=== PATIENT | female | born 1965 | race Caucasian/White ===

== ENCOUNTER → 2023-07-19 06:30 | Day surgery (SDC) | payer OTHER, SELFPAY | LOC: GI 06:30 | PROVIDERS: ATTENDING PHYSICIAN Internal Medicine Gastroenterology; FAMILY PHYSICIAN Family Medicine | DX: Z12.11 Encounter for screening for malignant neoplasm of colon (principal); K64.8 Other hemorrhoids; Q43.8 Other specified congenital malformations of intestine; Z86.010 Personal history of colon polyps | CPT/HCPCS: G0105 ==

== ENCOUNTER 2024-01-29 07:02 | Emergency (ER) | payer OTHER, SELFPAY ==
[2024-01-29] VITALS (8 sets, daily range): BP systolic 97–127; BP diastolic 56–89; PULSE 83–115; BMI 23.9
--- NOTE | 2024-01-29 07:27 | ED.GENMED ---
History of Present Illness
General
Chief Complaint: Dizziness
Source: patient and spouse
Time Seen by Provider: 01/29/24 07:10
History of Present Illness
History of Present Illness:
58-year-old female with no significant past medical history presenting to the emergency department for evaluation of 1 episode of nausea and vomiting that began last night accompanied by sensation of lightheadedness, palpitations and shortness of
breath. Was able to go back to sleep but upon awakening still felt the lightheadedness sensation and palpitations prompting her to come to the ER for further evaluation. Patient notes they went out to dinner last night and [place] but that she
has not had any fevers or diarrhea or other GI related symptoms. At present time does not feel the nausea or vomiting. Patient actually states that she feels somewhat improved since arriving to the ER. No known sick contacts but patient does note
that her son was exposed to somebody with COVID during the middle of the week and patient was also traveling in [place] for a conference and came back home on . Patient also notes she was recently started on Ozempic about 6 weeks ago but
states she has not had any complications with this. Social history was otherwise noncontributory.
Past History
Past History
ED Past Medical History: None
ED Past Surgical History: None
Social History
Tobacco: Non-smoker
Alcohol: Occasional
Drug: None
Personal:
Living: with family
Employment: Employed
Review of Systems
Review of Systems
All Other Systems: ROS reviewed and negative except as documented in HPI and ROS
Phy Exam
Physical Exam
Physical Exam:
GENERAL: Alert , in no apparent distress, somewhat anxious
EYE: clear conjunctiva
NECK: Supple
ENT: mmm.
CARDIAC: Regular rate and rhythm, HR between 88-93 during exam, no murmurs .
LUNGS: Clear breath sounds bilaterally, no acute respiratory distress, no wheezes/rales/rhonchi
ABDOMEN: Soft, without focal tenderness, no r/g, no cvat
NEUROLOGICAL: Alert and oriented, no focal neuro deficits, CASTILLO x 4, ambulates with steady gait, no ataxia, no dysmetria
SKIN: Warm and dry, skin intact.
MUSCULOSKELETAL: No edema, well perfused.
PSYCH: Normal and appropriate interaction.
Scores
Heart Failure Risk
Heart Failure Risk Score: Not Applicable
Heart Score for Chest Pain Patients
STEMI patient?: Not applicable
Withdrawal Assessment of Alcohol
Withdrawal Assessment Completed?: Not applicable
Course
Orders/Labs/Results
Orders:
Orders
01/29/24 07:05
ECG [Electrocardiogram (*1)] Urgent
Reason for Study: Chest Pain
EKG- Treatment ONCE
01/29/24 07:27
Orthostatic VS- Treatment ONCE
0.9% Sodium Chloride 1000 ml [Nss] 1,000 ml IV BOLUS
01/29/24 07:35
COVID-19 Antigen Urgent
Source: Nasal Swab
Complete Blood Count/With Diff Urgent
Comprehensive Metabolic Panel Urgent
TSH Urgent
Troponin I Urgent
Abnormal Lab Results
01/29/24
07:35
MCH 32.0 H pg
(27.0-31.0)
RDW 10.7 L %
(11.5-14.5)
Monocytes % 10.8 H %
(1.7-9.3)
Carbon Dioxide 21 L mmol/L
(22-30)
BUN 22 H mg/dl
(7-17)
Glucose 104 H mg/dl
(70-99)
01/29/24 07:35
01/29/24 07:35
Vital Signs
Initial and Last Documented VS:
Initial Vital Signs
Pulse Resp BP Pulse Ox
120 20 127/83 100
01/29/24 07:03 01/29/24 07:03 01/29/24 07:03 01/29/24 07:03
Last Documented Vital Signs
Pulse Resp BP Pulse Ox
83 15 113/74 96
01/29/24 09:15 01/29/24 09:15 01/29/24 09:00 01/29/24 09:15
MDM/Problems Addressed
Differential Diagnosis Includes:
viral syndrome, orthostasis, dehydration, electrolyte derangement, less concern for GI related illness given improvement of symptoms and no diarrhea
MDM/Problems Addressed:
58-year-old female presenting to the emergency department for evaluation of 1 episode of nausea and vomiting, lightheadedness, palpitations and generally feeling unwell. Symptoms are somewhat to mostly improved on arrival to the ER. Patient
denying any nausea or vomiting currently. Palpitations seem to be resolved. She is slightly anxious in appearance but otherwise well-appearing and in no acute distress. Will check labs, orthostatics, troponin, COVID test given possible exposure.
1 L of IV fluids given. Reassessment following.
*Pulse Oximetry
Patient hypoxic: no
*EKG
Interpreted by ED Provider?: Yes
Comparison EKG: no comparison EKG present
Heart Rate: 97
Rate: normal
Rhythm: sinus
[place]: normal axis
Ischemia: no ischemia
*[employer]ter Interpretation
Rate: normal
Rhythm: sinus
*Critical Care Note
Total Time (30-74mins, 75-104mins- exclusive of procedures): Not Applicable
Patient Management
Escalation/DeEscalation of care consider admission/obs:
On multiple re-evaluations patient noting she feels much improved. Labs finding with no significant abnormalities but she did have very slight elevation of BUN so there may be a mild component of dehydration. Feels well to go home. Aware of return
precautions. Discussed BRAT diet. Stable for d/c home
ED Attending Note
-
Portions of this chart may have been created with voice recognition software.� Occasional wrong word or��sound alike� substitutions may have occurred due to the inherent limitations of voice recognition software.
Discharge Plan
Departure
Patient Disposition: Home (Routine Discharge)
Date of Disposition: 01/29/24
Time of Disposition: 09:08
Patient with high blood pressure during this ER visit?: No
Discharge Problem:
Lightheadedness
Instructions: Dizziness, Nonvertigo, (DC)
Referrals:
Delilah Rodriguez DO [Family Provider] -
Interventions
Interventions:
*Risk Screen - Suicide Last Done: 01/29/24 07:23
*General Assessment Last Done: 01/29/24 07:45
*Neglect/Abuse Screening Last Done: 01/29/24 07:23
ED- Fall Risk Assessment Last Done: 01/29/24 07:23
*ED COVID-19 Vaccine History Last Done: 01/29/24 07:45
*Nursing Disposition Last Done: 01/29/24 09:23
ED- Neurological Assessment Last Done: 01/29/24 07:46
ED- Cardiac Assessment Last Done: 01/29/24 07:46
ED Swallowing Screen Last Done: 01/29/24 07:48
Discharge Date and Time
Discharge Date/Time: 01/29/24 09:30
Print Language: ALGERIAN
[2024-01-29 07:49] LABS: % Basophils 1.1 % (0-2); % Eosinophils 2.2 % (0-6); % Immature Granulocytes 0.2 % (0-0.5); % Lymphocytes 24.8 % (20.5-51.1); % Monocytes 10.8 % (1.7-9.3); % Neutrophils 60.9 % (42.2-75.2); Absolute Basophils 0.1 10^3/uL (0-0.2); Absolute Eosinophils 0.1 10^3/uL (0-0.7); Absolute Lymphocytes 1.4 10^3/uL (1.2-3.4); Absolute Monocytes 0.6 10^3/uL (0.1-0.6); Absolute Neutrophils 3.4 10^3/uL (1.4-6.5); Hematocrit 39.3 % (37.0-47.0); Mean Corp Hgb Conc. 35.6 g/dL (33.0-37.0); Mean Corpuscular Volume 89.7 fL (81.0-99.0); Mean Platelet Volume 9.8 fL (7.4-10.4); Nucleated Red Blood Cells % 0 %; Platelet Count 296 10^3/uL (130-400); Red Blood Cell Count 4.38 10^6/uL (4.20-5.40); Red Cell Dist. Width 10.7 % (11.5-14.5); White Blood Cell Count 5.6 10^3/uL (4.8-10.8)
[2024-01-29] MEDS: NSS 1000 IV (08:04)
[2024-01-29 08:13] LABS: ALT (SGPT) 16 U/L (0-35); AST (SGOT) 19 U/L (14-36); Albumin 4.6 g/dl (3.5-5.0); Alkaline Phosphatase 42 U/L (38-126); Blood Urea Nitrogen 22 mg/dl (7-17); Calcium 10.2 mg/dl (8.4-10.2); Carbon Dioxide 21 mmol/L (22-30); Chloride 106 mmol/L (98-107); Estimated Creatinine Clearance 57 ml/min; Glucose 104 mg/dl (70-99); Potassium 4.7 mmol/L (3.5-5.1); Sodium 142 mmol/L (135-145); Total Bilirubin 0.7 mg/dl (0.2-1.3); Total Protein 6.7 g/dl (6.3-8.2); eGFR > 60.00
[2024-01-29 08:16] LABS: Troponin I < 0.012 ng/ml
[2024-01-29 08:22] LABS: COVID-19 Antigen Negative (Negative)
[2024-01-29 08:36] LABS: TSH 2.51 uIU/ml (0.47-4.68)
== END 2024-01-29 09:30 | disposition home or self-care (01) ==
LOC: EMR 07:02
PROVIDERS: Physician Assistant Medical; EMERGENCY PHYSICIAN Student in an Organized Health Care Education/Training Program; FAMILY PHYSICIAN Family Medicine
DX: R42 Dizziness and giddiness (principal); Z11.52 Encounter for screening for COVID-19
CPT/HCPCS: 99284; 96360; 80053; 84443; 84484; 85025; 87811; 93005

== ENCOUNTER → 2024-03-22 12:36 | Outpatient (REF) | payer OTHER, SELFPAY | LOC: WDC 12:36 | PROVIDERS: ATTENDING PHYSICIAN Family Medicine | DX: Z12.31 Encounter for screening mammogram for malignant neoplasm of breast (principal) | CPT/HCPCS: 77063; 77067 ==

== ENCOUNTER 2024-05-01 10:14 | Emergency (ER) | payer OTHER, SELFPAY ==
[2024-05-01 10:23] VITALS: BP 143/90
[2024-05-01 10:47] LABS: % Basophils 0.9 % (0-2); % Eosinophils 0.9 % (0-6); % Immature Granulocytes 0.4 % (0-0.5); % Lymphocytes 18.9 % (20.5-51.1); % Monocytes 10.1 % (1.7-9.3); % Neutrophils 68.8 % (42.2-75.2); Absolute Basophils 0.1 10^3/uL (0-0.2); Absolute Eosinophils 0.1 10^3/uL (0-0.7); Absolute Monocytes 0.5 10^3/uL (0.1-0.6); Absolute Neutrophils 3.7 10^3/uL (1.4-6.5); Hematocrit 35.6 % (37.0-47.0); Mean Corp Hgb Conc. 33.7 g/dL (33.0-37.0); Mean Corpuscular Hgb 31.9 pg (27.0-31.0); Mean Corpuscular Volume 94.7 fL (81.0-99.0); Mean Platelet Volume 9.8 fL (7.4-10.4); Nucleated Red Blood Cells % 0 %; Platelet Count 333 10^3/uL (130-400); Red Blood Cell Count 3.76 10^6/uL (4.20-5.40); Red Cell Dist. Width 11.7 % (11.5-14.5); White Blood Cell Count 5.4 10^3/uL (4.8-10.8)
[2024-05-01 11:12] LABS: ALT (SGPT) 13 U/L (0-35); AST (SGOT) 14 U/L (14-36); Albumin 4.5 g/dl (3.5-5.0); Alkaline Phosphatase 26 U/L (38-126); Blood Urea Nitrogen 14 mg/dl (7-17); Calcium 9.4 mg/dl (8.4-10.2); Carbon Dioxide 26 mmol/L (22-30); Chloride 104 mmol/L (98-107); Glucose 114 mg/dl (70-99); Lipase 149 U/L (23-300); Potassium 3.8 mmol/L (3.5-5.1); Sodium 138 mmol/L (135-145); Total Bilirubin 0.2 mg/dl (0.2-1.3); Total Protein 6.7 g/dl (6.3-8.2); eGFR > 60.00
[2024-05-01 11:20] VITALS: BMI 23.6
[2024-05-01 11:46] VITALS: BP 129/81; BP 131/92; BP 136/71; PULSE 71; PULSE 72; PULSE 85
--- NOTE | 2024-05-01 11:53 | ED.GENMED ---
History of Present Illness
<Lucero Villasenor PA-C - Last Filed: 05/01/24 14:16>
General
Chief Complaint: Fainting Sensation
Source: patient
Exam Limitations: none
Time Seen by Provider: 05/01/24 11:16
Nursing documentation reviewed up to this point in time: agreed with
History of Present Illness
History of Present Illness:
Patient is a 58 year old female presenting for evaluation of lightheadedness and nausea over the past 5 days. Patient states she traveled to her home in [place]. She states throughout the weekend she was having persistent nausea
and lightheadedness. She did note occasional palpitations. No true dizziness sensation. No fevers or abdominal pain. She denies any chest pain or shortness of breath.
Patient did go to an IV fluids outpatient location yesterday and received a bag of fluids and some 'vitamin injections'.
Of note�patient did recently increase her semaglutide strength prior to onset of symptoms. In addition�she did start taking dutasteride for hair thinning the night before the onset of symptoms. Patient has since discontinued the dutasteride as she
is afraid it may be causing the symptoms.
Past History
<Lucero Villasenor PA-C - Last Filed: 05/01/24 14:16>
Past History
ED Past Medical History: None
ED Past Surgical History: None
Social History
Tobacco: Non-smoker
Alcohol: Occasional
Drug: None
Personal:
Living: with family
Employment: Employed
Review of Systems
<Lucero Villasenor PA-C - Last Filed: 05/01/24 14:16>
Review of Systems
Allergies reviewed?: Yes
All Other Systems: ROS reviewed and negative except as documented in HPI and ROS
Phy Exam
<Lucero Villasenor PA-C - Last Filed: 05/01/24 14:16>
Physical Exam
Physical Exam:
Vitals: Patient's vital signs are stable. Afebrile
General: Patient is well appearing, no acute distress toxic appearing
Skin: Warm and dry, no rashes or lesions
Head: Normocephalic, atraumatic
Eyes: Sclera nonicteric. EOMs intact. No nystagmus.
Throat: Mucous membranes. Protecting airway
Neck: Normal ROM, no cervical spine tenderness, no meningismus
Cardiac: Regular rate and rhythm, no murmurs.
Pulm: Normal respiratory effort, no wheezes, rales, rhonchi heard on exam.
Abdomen: Abdomen soft. No abdominal tenderness. No rebound tenderness or guarding.
Extremities: No evidence of cyanosis or edema. Sensation fully intact
Neuro: AAOx3. CN II-XII intact. No focal neurologic deficits. Strength 5 out of 5 upper lower extremities
Psychiatric: Normal affect.
Course
<Lucero Villasenor PA-C - Last Filed: 05/01/24 14:16>
Orders/Labs/Results
Orders:
Orders
05/01/24 10:28
Electrocardiogram (*1) Urgent
Reason for Study: Fatigue / Weakness
05/01/24 10:29
EKG- Treatment ONCE
05/01/24 10:39
Complete Blood Count/With Diff Urgent
Comprehensive Metabolic Panel Urgent
Lipase Urgent
05/01/24 11:42
Orthostatic VS- Treatment ONCE
Abnormal Lab Results
05/01/24
10:39
RBC 3.76 L 10^6/uL
(4.20-5.40)
Hct 35.6 L %
(37.0-47.0)
MCH 31.9 H pg
(27.0-31.0)
Absolute Lymphs (auto) 1.0 L 10^3/uL
(1.2-3.4)
Lymphocytes % 18.9 L %
(20.5-51.1)
Monocytes % 10.1 H %
(1.7-9.3)
Glucose 114 H mg/dl
(70-99)
Alkaline Phosphatase 26 L U/L
(38-126)
05/01/24 10:39
05/01/24 10:39
Vital Signs
Initial and Last Documented VS:
Initial Vital Signs
Temp Pulse Resp BP Pulse Ox
98.7 F 83 16 143/90 100
05/01/24 10:23 05/01/24 10:23 05/01/24 10:23 05/01/24 10:23 05/01/24 10:23
Last Documented Vital Signs
Temp Pulse Resp BP Pulse Ox
97.1 F 76 20 124/71 99
05/01/24 12:41 05/01/24 12:41 05/01/24 12:41 05/01/24 12:41 05/01/24 12:41
<Robe Crow, DO - Last Filed: 05/01/24 12:13>
Orders/Labs/Results
Orders:
Orders
05/01/24 10:28
Electrocardiogram (*1) Urgent
Reason for Study: Fatigue / Weakness
05/01/24 10:29
EKG- Treatment ONCE
05/01/24 10:39
Complete Blood Count/With Diff Urgent
Comprehensive Metabolic Panel Urgent
Lipase Urgent
05/01/24 11:42
Orthostatic VS- Treatment ONCE
Abnormal Lab Results
05/01/24
10:39
RBC 3.76 L 10^6/uL
(4.20-5.40)
Hct 35.6 L %
(37.0-47.0)
MCH 31.9 H pg
(27.0-31.0)
Absolute Lymphs (auto) 1.0 L 10^3/uL
(1.2-3.4)
Lymphocytes % 18.9 L %
(20.5-51.1)
Monocytes % 10.1 H %
(1.7-9.3)
Glucose 114 H mg/dl
(70-99)
Alkaline Phosphatase 26 L U/L
(38-126)
05/01/24 10:39
05/01/24 10:39
Vital Signs
Initial and Last Documented VS:
Initial Vital Signs
Temp Pulse Resp BP Pulse Ox
98.7 F 83 16 143/90 100
05/01/24 10:23 05/01/24 10:23 05/01/24 10:23 05/01/24 10:23 05/01/24 10:23
Last Documented Vital Signs
Temp Pulse Resp BP Pulse Ox
97.1 F 76 20 124/71 99
05/01/24 12:41 05/01/24 12:41 05/01/24 12:41 05/01/24 12:41 05/01/24 12:41
<Lucero Villasenor PA-C - Last Filed: 05/01/24 14:16>
MDM/Problems Addressed
Differential Diagnosis Includes:
Not limited to: Medication side effect, dehydration, orthostatic hypotension, cardiac arrhythmia, viral illness, etc.
MDM/Problems Addressed:
58-year-old female with lightheadedness and nausea over the past 5 days. No chest pain or shortness of breath. No other neurologic symptoms. Patient did have recent increase in dose of semaglutide and new medication, dutasteride. Patient has
stable vital signs. She is afebrile. On exam�patient is well-appearing, in no apparent distress. Heart regular rate and rhythm. Lungs clear bilaterally. Benign abdominal exam. No focal neurologic deficits noted. She has moist mucous
membranes. Orthostatic vital signs were obtained which do not show evidence of orthostasis. EKG shows normal sinus rhythm without any evidence of arrhythmias or ischemic changes. Did review patient's lab work that was obtained by PCP last
Tuesday with TSH in normal range. Do not suspect central process. Given benign abdominal exam, no leukocytosis, no fever�very low suspicion for acute infectious abdominal process-no indication for abdominal imaging at this time. Suspect
symptoms likely related to recent increase in dose of semaglutide. It is possible that she may be having some side effects of dutasteride although I feel this is less likely. Feel patient is stable for discharge with primary care follow-up.
Advised to decrease semaglutide dose back to her prior dose and follow-up. Return precaution discussed. Patient comfortable with plan. Case seen with attending physician
Chronic conditions affecting care:
N/A
Acute Exacerbation and/or Progression of Chronic Illness:
N/A
<Lucero Villasenor PA-C - Last Filed: 05/01/24 14:16>
*Pulse Oximetry
Patient hypoxic: no
*EKG
Interpreted by ED Provider?: Yes
EKG Intrepretation Date: 05/01/24
Interpretation: normal
Comparison EKG: no changes
Heart Rate: 75
Rate: normal
Rhythm: sinus
[place]: normal axis
Interval: normal interval
QRS Pattern: normal QRS
Ischemia: no ischemia
*Client Relations Associate Interpretation
Rate: normal
Interpretation: normal
Heart Rate: 80
Rhythm: sinus
*Critical Care Note
Total Time (30-74mins, 75-104mins- exclusive of procedures): Not Applicable
ED Attending Note
<Lucero Villasenor PA-C - Last Filed: 05/01/24 14:16>
-
Portions of this chart may have been created with voice recognition software.� Occasional wrong word or��sound alike� substitutions may have occurred due to the inherent limitations of voice recognition software.
<Robe Crow DO - Last Filed: 05/01/24 12:13>
ED Attending Note
Patient seen and examined by attending physician: Yes
I performed a history and physical exam of patient and discussed management with resident, I reviewed resident's note and agree with documented findings and plan of care.: Yes
ED Attending Note:
I reviewed and agree with history and treatment plan by Lucero Caal. Exam revealed 58-year-old female in no acute distress. Sinus normal sinus rhythm monitor. Suspect symptoms related to dose change of semaglutide. Patient stable for
discharge. Follow-up primary care. She will decrease her dose of semaglutide
Discharge Plan
Departure
Patient Disposition: Home (Routine Discharge)
Date of Disposition: 05/01/24
Time of Disposition: 12:15
Patient with high blood pressure during this ER visit?: No
Condition: Good
Covid-19: Not Applicable
Discharge Problem:
Medication side effects
Referrals:
Delilah Rodriguez, [Family Provider] - Follow up in 5-7 days
Activity Restrictions/Additional Instructions:
RETURN TO THE EMERGENCY DEPARTMENT WITH ANY CHEST PAIN, SHORTNESS OF BREATH, PERSISTENT DIZZINESS, SEVERE HEADACHE, INTRACTABLE NAUSEA/VOMITING, SIGNS OF SEVERE DEHYDRATION, WORSENING IN CURRENT SYMPTOMS, OR ANY OTHER CONCERNS
-As discussed�I suspect your symptoms are likely secondary to a medication reaction. I would recommend that you decrease your semaglutide dose. You can trial restarting the dutasteride if you would like.
-Is important to stay well-hydrated
-Follow-up with your primary care for further evaluation/management and for recommendations on medication dosages
Monitor your symptoms closely return to the emergency department with any acute worsening/new symptoms or any other concerns
Interventions
Interventions:
*Risk Screen - Suicide Last Done: 05/01/24 11:20
*General Assessment Last Done: 05/01/24 11:20
*Neglect/Abuse Screening Last Done: 05/01/24 11:20
ED- Fall Risk Assessment Last Done: 05/01/24 11:20
*ED COVID-19 Vaccine History Last Done: 05/01/24 11:20
*Nursing Disposition Last Done: 05/01/24 12:41
ED- Cardiac Assessment Last Done: 05/01/24 11:20
ED- Neurological Assessment Last Done: 05/01/24 11:20
Discharge Date and Time
Discharge Date/Time: 05/01/24 12:45
Print Language: MONTENEGRIN
--- NOTE | 2024-05-01 12:12 | EDRN ---
Dr. Crow currently at the pts bedside
[2024-05-01 12:41] VITALS: BP 124/71
== END 2024-05-01 12:45 | disposition home or self-care (01) ==
LOC: EMR 10:14
PROVIDERS: EMERGENCY PHYSICIAN Emergency Medicine; FAMILY PHYSICIAN Family Medicine
DX: R55 Syncope and collapse (principal); R42 Dizziness and giddiness; R11.0 Nausea; R00.2 Palpitations; T45.2X5A Adverse effect of vitamins, initial encounter; Y92.9 Unspecified place or not applicable
CPT/HCPCS: 99283; 80053; 83690; 85025; 93005

== ENCOUNTER → 2024-12-28 09:41 | Outpatient (REF) | payer BC, SELFPAY | LOC: MRI 3T 09:41 | PROVIDERS: ATTENDING PHYSICIAN Nurse Practitioner Family; FAMILY PHYSICIAN Family Medicine | DX: Z98.82 Breast implant status (principal) | CPT/HCPCS: 77049; A9585 ==

== ENCOUNTER → 2025-01-03 14:42 | Outpatient (REF) | payer BC, SELFPAY | LOC: WDC 14:42 | PROVIDERS: ATTENDING PHYSICIAN Nurse Practitioner Family; FAMILY PHYSICIAN Family Medicine | DX: R92.8 Other abnormal and inconclusive findings on diagnostic imaging of breast (principal) | CPT/HCPCS: 76642 ==

== ENCOUNTER → 2025-03-25 13:35 | Outpatient (REF) | payer BC, SELFPAY | LOC: WDC 13:35 | PROVIDERS: ATTENDING PHYSICIAN Nurse Practitioner Family; FAMILY PHYSICIAN Family Medicine | DX: Z12.31 Encounter for screening mammogram for malignant neoplasm of breast (principal) | CPT/HCPCS: 77063; 77067 ==